=== PATIENT | male | born 1950 | race Caucasian/White ===

== ENCOUNTER → 2017-07-21 | Outpatient (CLI) | payer OTHER ==
[~2017-07-21] VITALS: Ht 177.8 cm; Wt 90.8 kg
[~2017-07-21] MED LIST: BENAZEPRIL HCL20 MG PO; CENTRUM TABLET1 TAB PO; CRESTOR5 MG PO; GLUCOPHAGE XR500 MG PO; IBUPROFEN 200200 M1 PO; LEVOTHYROXIN0.112 M1 PO; LIPITOR 20 MG T20 M1 PO; MOBIC7.5 MG PO; SYNTHROID25 MCG PO; ZANAFLEX2 MG PO
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
[2017-07-21 12:38] VITALS: BP 146/71
== END | disposition home or self-care (01) ==
LOC: PAIN 06:54
DX: M47.816 Spondylosis without myelopathy or radiculopathy, lumbar region (principal); M54.5 Low back pain; J44.9 Chronic obstructive pulmonary disease, unspecified; F32.9 Major depressive disorder, single episode, unspecified; F17.210 Nicotine dependence, cigarettes, uncomplicated; Z79.899 Other long term (current) drug therapy; Z87.820 Personal history of traumatic brain injury

== ENCOUNTER → 2018-03-13 | Outpatient (CLI) | payer OTHER ==
[~2018-03-13] VITALS: Ht 177.8 cm; Wt 89.8 kg
[2018-03-13 12:40] VITALS: BP 142/74
--- NOTE | 2018-03-13 12:44 | NUR ---
Pain Clinic Assessment: 1. History of Osteoarthritis: History of Rheumatoid Arthritis: 2. Height: 5 ft. 10 in. 177.8 cm. Weight: 198.0 lb. oz. 89.812 kg. Patient's BMI: 28.4 3. Vital Signs: BP: 142/74 Pulse: 77 Resp: 16 Temp: 02 Sat: 98 ECG Mon: 4. Pain Intensity: 3 5. Fall Risk: Dizziness: N Needs help standing or walking: N Fallen in the last 3 months: Y Fall risk comments: 6. Patient on Blood Thinner: None 7. History of Hypertension: Y 8. Opioid Therapy greater than 6 weeks: N Opiate Contract Signed: 9. Risk Assessment Tool Provided: 4-mod risk 10. Functional Assessment Tool: 11. Recreational Drug Use: Current within past 3 mos Drug Type: [place] Tobacco Use: Current Every Day Smoker Tobacco Type: Cigarettes Amount or Packs/day: 2 How Many Years: Alcohol Use: Yes Frequency: Special Occasions Quant:
--- NOTE | 2018-03-15 15:34 | HPC ---
[facility] [place] [address] PAIN MANAGEMENT CONSULTATION Name: ANTONIO HALL Room #: REG GI[facility]ANNA[facility]ad[facility] José.#: [id number] Admission: 03/13/18 Attend Phys: Tha Smith MD Discharge: Date of : 54 Report #: [id number] THIS REPORT FOR: //name// CC: Physician staff Tha NEAL DATE OF SERVICE: 03/13/2018 SUBJECTIVE: Followup visit for lumbar spondylosis. The patient returns to pain clinic today for diagnostic medial branch nerve blocks. He has been treated successfully with facet injections under fluoroscopic guidance with near complete pain relief in the past. Pain is returning and repeat facet injections performed last year did not provide as long of relief. He feels that there is good evidence that this is facet-mediated pain given his response and radiofrequency ablation has been discussed at previous office visits. I reviewed records dating back to 2014. It was noted at that time that he responded favorably to facet treatments and medial branch nerve blocks with radiofrequency were discussed as far back as 4 years ago. He never pursued that treatment. SOCIAL HISTORY: He is . His is with him today. He is a current everyday smoker, smoking up to 2 packs of cigarettes a day. He also acknowledges use of marijuana and alcohol. He is disabled. PHYSICAL EXAMINATION: VITAL SIGNS: He is 5 feet 10 inches, 198 pounds, BMI is 28.4. Blood pressure 142/74, heart rate is 77. GENERAL: He reports a pain intensity of 3. He moves independent, standing position and walks without a walker at this time. He has not fallen, does not appear to be a fall risk despite his lack of balance. His gait is ataxic. CHEST: Clear to auscultation. CARDIAC: Rhythm is regular. ABDOMEN: Soft. MUSCULOSKELETAL: Examination of his spine reveals tenderness across the lower leg, lumbar segment. Back range of motion is good with some increase in back pain with back extension. When he walks, he very quickly assumes forward leaning position in order to take pressure off the lumbosacral facets. IMAGING: X-ray showed degenerative changes throughout the lumbar spine and facet arthropathy. IMPRESSION: Chronic low back pain with spondylosis. [facility] [address] [place] [address] PAIN MANAGEMENT CONSULTATION Name: ANTONIO HALL Jose Room #: REG [facility]#: [id number] Admission: 03/13/18 Attend Phys: Tha Smith MD Discharge: Date of : 54 Report #: [id number] RECOMMENDATIONS: Given his good response to facet injections, I do not think that we would need to perform 2 diagnostic treatments. If he responds favorably to the first, I would proceed onward with radiofrequency ablation. Potential benefits and risks of the procedure explained. He is anxious to go forward. PROCEDURE: He was taken to fluoroscopic suite where he was placed prone. Skin was prepped with ChloraPrep. Skin was anesthetized first on the left. 25-gauge needles were advanced into position on the L3-L4 and transverse process as well as the L5 transverse process and the sacral ala. Once positioned, then after negative aspiration, I injected each needle with 0.5 mL of 0.5% bupivacaine. [place] were withdrawn. Skin was anesthetized on the right. Mirror image injections were performed. We were able to thus denervate the L4-L5 and L5-S1 facet joints. He was observed in recovery room for 30 minutes and discharged with a pain score of 0. He was given a sheet to document his response to these diagnostic injections over the next 12-24 hours. We anticipate that he will get response only for a short term based upon the local anesthetic affect. As mentioned having had favorable facet injections prior to these medial branch nerve blocks, I would consider 2 diagnostic injections completed if this is favorable and go forward with radiofrequency ablation at his subsequent visit. <ELECTRONICALLY SIGNED> By: Tha Smith MD 03/15/18 1534 1522 2230 Tha Smith MD /nt
== END | disposition home or self-care (01) ==
LOC: PAIN 07:04
DX: M47.816 Spondylosis without myelopathy or radiculopathy, lumbar region (principal); G89.29 Other chronic pain; F17.210 Nicotine dependence, cigarettes, uncomplicated; Z79.899 Other long term (current) drug therapy; Z98.890 Other specified postprocedural states

== ENCOUNTER → 2018-03-30 | Outpatient (CLI) | payer OTHER ==
[~2018-03-30] VITALS: Ht 177.8 cm; Wt 88.1 kg
[2018-03-30 10:30] VITALS: BP 134/57
--- NOTE | 2018-03-30 10:48 | NUR ---
Pain Clinic Assessment: 1. History of Osteoarthritis: BACK History of Rheumatoid Arthritis: NO 2. Height: 5 ft. 10 in. 177.8 cm. Weight: 194.2 lb. oz. 88.089 kg. Patient's BMI: 27.9 3. Vital Signs: BP: 134/57 Pulse: 69 Resp: 14 Temp: 02 Sat: 100 ECG Mon: 4. Pain Intensity: 4-5 5. Fall Risk: Dizziness: N Needs help standing or walking: N Fallen in the last 3 months: N Fall risk comments: 6. Patient on Blood Thinner: None 7. History of Hypertension: Y 8. Opioid Therapy greater than 6 weeks: N Opiate Contract Signed: 9. Risk Assessment Tool Provided: 4-mod risk 10. Functional Assessment Tool: 11. Recreational Drug Use: Current within past 3 mos Drug Type: Tobacco Use: Current Every Day Smoker Tobacco Type: Cigarettes Amount or Packs/day: 2 PPD How Many Years: 50 Alcohol Use: Yes Frequency: Special Occasions Quant:
--- NOTE | 2018-04-10 07:40 | HPC ---
[facility] [address] [place] [address] PAIN MANAGEMENT CONSULTATION Name: ANTONIO HALL Room #: REG [facility] Estefanía.#: [id number] Admission: 03/30/18 ������������������ Attend Phys: Tha Smith MD Discharge: ������������������ Date of : 54 Report #: [id number] THIS REPORT FOR: //name// CC: NIHARIKA ÁNGEL [employer] Physician staff Tha NEAL DATE OF SERVICE: 03/30/2018 Followup visit for radiofrequency ablation. The patient returns to clinic today for ablation. He has pain related to the L5-S1, L4-L5 and L3-L4 facet joints bilaterally. We have treated these with diagnostic injections obtaining an excellent response. Completely denervating the 3 joints necessary by providing local anesthetic at the L3, L4, L5 transverse process and also at the L5 dorsal ramus. He is here today to perform radiofrequency of each of these locations, the L5 dorsal ramus, the L4, L3, L2 medial branch nerves. Potential risks and benefits have been discussed in detail. We will do the left side today as we are reimbursed only for one side at a time. Described the procedure prior to entering the room and asked for questions. He had none. PROCEDURE: Radiofrequency ablation under fluoroscopic guidance. Skin was prepped widely with ChloraPrep. Skin was anesthetized. The C-arm was utilized to position all needles. Targets were identified and the skin anesthetized as well as a 0.5 cm subcutaneous tissue at each level. I then advanced the needle to the articulation of the transverse process in the superior articulating process of L3, L4, L5 and advanced the needle to the tip of the sacral ala. AP and lateral views were used to confirm excellent location of each needle without extension into the neural foramina. We then began testing. Each needle was tested at 50 Hz for stimulation and 2 Hz for motor stimulation. He responded beautifully at each level and we were able to achieve sensory stimulation at less than 0.4 at 3 levels and 0.5 at 1 level. There was no motor stimulation into the leg and any probe. Each needle then was injected with 1 mL of 1% lidocaine and the probes were replaced. We waited one minute. At the conclusion of the minute, we performed a simultaneous lesioning for 90 seconds at 80 degrees. There was no discomfort during the performance of the procedure. The probe was removed one final time and each needle then withdrawn 1-2 mL and injected with a mL of 0.5% bupivacaine mixed with 15 mg of triamcinolone. The needles were then all removed. He was taken to recovery room where he was observed for a period of 1 hour. There was no subjective weakness nor was there any evidence of motor weakness at the conclusion of the procedure. There was no increased pain. He reported that his pain on the left was improved. He has not been treated yet on the right. [address] [address] PAIN MANAGEMENT CONSULTATION Name: ANTONIO HALL Jose Room #: REG CL Sun#: [id number] Admission: 03/30/18 ������������������ Attend Phys: Tha Smith MD Discharge: ������������������ Date of : 54 Report #: [id number] Plan is for him to return to the pain clinic in the next week for the conclusion of the procedure. ��������������������������������������������� <ELECTRONICALLY SIGNED> ���������������������������������������� By: Tah Smith MD ��������������������������������������������� 04/10/18 0740 1642 2150 Tha Smith MD /nt
== END | disposition home or self-care (01) ==
LOC: PAIN 06:47
DX: M47.816 Spondylosis without myelopathy or radiculopathy, lumbar region (principal); M47.817 Spondylosis without myelopathy or radiculopathy, lumbosacral region; G89.29 Other chronic pain; F17.210 Nicotine dependence, cigarettes, uncomplicated; Z79.899 Other long term (current) drug therapy; Z98.890 Other specified postprocedural states

== ENCOUNTER → 2018-04-13 | Outpatient (CLI) | payer OTHER ==
[~2018-04-13] VITALS: Ht 177.8 cm; Wt 86.6 kg
--- NOTE | ~2018-04-13 | HPC ---
[facility] [place] [address] PAIN MANAGEMENT CONSULTATION Name: ANTONIO HALL Jose Room #: REG [facility] Sun#: [id number] Admission: 04/13/18 ������������������ Attend Phys: Tha Smith MD Discharge: ������������������ Date of : 54 Report #: [id number] THIS REPORT FOR: //name// CC: Tha NEAL DATE OF SERVICE: 04/13/2018 Followup visit for lumbar spondylosis. The patient is here today to complete radiofrequency ablation. We denervated 3 joints at last visit, the L5-S1, L4-L5 and L3-L4 on the left. He had a very good response. Over 50% improvement across his low back. We are hoping that with the completion of the procedure today that he will have even more complete relief. The procedure went exceptionally well and our needle positions were landed quickly at last visit. We reviewed the procedure today, risks and benefits. He understands the procedure well now. We will proceed with treatment. IMPRESSION: Lumbar spondylosis. PROCEDURE: Radiofrequency ablation under fluoroscopic guidance of the L3-L4, L4-L5 and L5-S1 joint. Nerve branches treated are the L2, L3, L4 medial branch nerve and the L5 dorsal ramus. After informed consent, the patient was taken to fluoroscopic suite, placed in the prone position. Skin was prepped with ChloraPrep. Skin was anesthetized first laterally along the target lines for the L2, L3 and L4 medial branch nerves corresponding to the L3, L4 and L5 transverse process. Separately, a 20-gauge 10 mm active tip needles were advanced along the C-arm axis into position at the junction of the transverse process and the superior articulating process. I then placed the C-arm at an AP projection and final needle was placed at the sacral ala for the L5 dorsal ramus. The stylet was removed and the probe placed through each needle and separately we performed testing both sensory and motor at each level. Excellent responses were achieved as noted on the radiofrequency procedure performed at appropriate impedance. Each needle placement was felt to be superb based upon less than 0.5 sensory testing. There were no motor responses. The probes were removed and I injected each needle with 1 mL of 1% lidocaine. I then replaced the probes and performed a 90-second denervation at 80 degrees centigrade. The probe was removed and each needle was injected after slightly withdrawing with 1 mL of 0.5% bupivacaine and 10 mg of triamcinolone. The needles were then removed and the patient was taken to recovery room for observation. He was there for roughly 1 hour. There was no evidence of subjective or objective weakness in the lower extremities and there were no complications. He was discharged with his with a pain score of 0. [address] [address] PAIN MANAGEMENT CONSULTATION Name: ANTONIO HALL Room #: REG LINDA Garsia#: [id number] Admission: 04/13/18 ������������������ Attend Phys: Tha Smith MD Discharge: ������������������ Date of : 54 Report #: [id number] Followup visit is planned as needed. If this is as successful as we hope, I may not see him for a number of months, perhaps even a year or more. ��������������������������������������������� ���������������������������������������� By: ��������������������������������������������� 1554 0522 Tha Smith MD /nt
[2018-04-13 10:25] VITALS: BP 157/77
--- NOTE | 2018-04-13 10:41 | NUR ---
Pain Clinic Assessment: 1. History of Osteoarthritis: BACK History of Rheumatoid Arthritis: NO 2. Height: 5 ft. 10 in. 177.8 cm. Weight: 191.0 lb. oz. 86.637 kg. Patient's BMI: 27.4 3. Vital Signs: BP: 157/77 Pulse: 80 Resp: 18 Temp: 02 Sat: 100 ECG Mon: 4. Pain Intensity: 4-5 5. Fall Risk: Dizziness: N Needs help standing or walking: N Fallen in the last 3 months: Y Fall risk comments: 6. Patient on Blood Thinner: None 7. History of Hypertension: Y 8. Opioid Therapy greater than 6 weeks: N Opiate Contract Signed: 9. Risk Assessment Tool Provided: 4-mod risk 10. Functional Assessment Tool: 11. Recreational Drug Use: Current within past 3 mos Drug Type: Tobacco Use: Current Every Day Smoker Tobacco Type: Amount or Packs/day: How Many Years: Alcohol Use: Yes Frequency: Quant:
== END | disposition home or self-care (01) ==
LOC: PAIN 07:00
DX: M47.816 Spondylosis without myelopathy or radiculopathy, lumbar region (principal); G89.29 Other chronic pain; F17.210 Nicotine dependence, cigarettes, uncomplicated; Z79.899 Other long term (current) drug therapy; Z98.890 Other specified postprocedural states

== ENCOUNTER → 2019-10-04 | Outpatient (CLI) | payer OTHER ==
[~2019-10-04] VITALS: Ht 177.8 cm; Wt 81.2 kg
[~2019-10-04] MED LIST changes: +PLAVIX 75 MG TA75 MG PO
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
[2019-10-04 14:01] VITALS: BP 139/63
--- NOTE | 2019-10-04 14:31 | NUR ---
Pain Clinic Assessment: 1. History of Osteoarthritis: BACK LEFT SHOULDER History of Rheumatoid Arthritis: NO 2. Height: 5 ft. 10 in. 177.8 cm. Weight: 179.1 lb. oz. 81.239 kg. Patient's BMI: 25.7 3. Vital Signs: BP: 139/63 Pulse: 83 Resp: 20 Temp: 02 Sat: 98 ECG Mon: 4. Pain Intensity: 0 5. Fall Risk: Dizziness: N Needs help standing or walking: Y Fallen in the last 3 months: Y Fall risk comments: 6. Patient on Blood Thinner: None 7. History of Hypertension: Y 8. Opioid Therapy greater than 6 weeks: N Opiate Contract Signed: 9. Risk Assessment Tool Provided: LOW RISK 02/09 10. Functional Assessment Tool: 11. Recreational Drug Use: Current within past 3 mos Drug Type: [place] Tobacco Use: Current Every Day Smoker Tobacco Type: Cigarettes Amount or Packs/day: 1 PACK DAY How Many Years: Alcohol Use: Yes Frequency: Weekly Quant: 5-6
== END ==
LOC: PAIN 06:51
PROVIDERS: ATTEND Anesthesiology Pain Medicine
DX: M19.019 Primary osteoarthritis, unspecified shoulder (principal); G89.29 Other chronic pain